=== PATIENT | male | born 1975 ===

== ENCOUNTER 2017-02-05 21:02 | Emergency (ER) | payer SELFPAY ==
[~2017-02-05] VITALS: Ht 182.9 cm; Wt 84.0 kg
[2017-02-05 21:06] VITALS: BP 146/96; TEMP 36.4; Ht 182.9 cm; Wt 84.0 kg
[2017-02-05] MEDS ORDERED: HYDROCODONE/ACETAMOPHEN 5/325MG TAB PO STA (21:25)
[2017-02-05] MEDS ORDERED: NORCO 5/325MG HOME PACK PO ONE (21:30)
--- NOTE | 2017-02-05 21:30 | EMERGENCY ROOM VISIT NOTE ---
ED Visit Note First contact with patient: 21:20 CHIEF COMPLAINT: Left lower tooth pain HISTORY OF PRESENT ILLNESS: This 31-year-old male patient has had a progressive toothache for several days. The pain is now steady and severe and radiates to the face. He has an appointment on Thursday with his dentist. Denies facial swelling or fever. The patient has been trying [id number] treatment without any relief of the pain. REVIEW OF SYSTEMS: 6 system review was performed and was negative unless stated otherwise in history of present illness. PMH: The patient is healthy; asthma, stomach problems SOCIAL HISTORY: Patient lives alone. The patient admits to tobacco use but denies any alcohol use. PHYSICAL EXAM: Vital Signs: Were reviewed Reviewed Nurse's notes. GENERAL: 41- year-old male appears uncomfortable secondary to tooth pain. MENTAL Status: Alert and oriented 3. MOUTH: Diffuse dental decay is noted. Left lower tooth with a portion of it missing with diffuse decay. Gingiva surrounding it without erythema or edema. No palpable abscess noted. FACE: No facial swelling noted. NECK: No cervical or submandibular lymphadenopathy. EMERGENCY COURSE: The patient was evaluated. The patient was given Kerrick 5/325 mg 2 tablets by mouth for pain while in the emergency room. He was also given a Kerrick home pack. The patient was given dental wax. The patient was discharged home in stable condition with a friend driving. DIAGNOSIS: Dental caries and dentalgia DISCHARGE INSTRUCTIONS & TREATMENT: Take Kerrick as needed for pain. Do not drive while taking the Kerrick. Use dental wax as directed. Take amoxicillin as prescribed. Keep scheduled appointment with your dentist on Thursday for definitive care. Current/Historical Medications No Active Prescriptions or Reported Meds Allergies Coded Allergies: No Known Allergies (Unverified , 02/05/17) Vital Signs Date Time Temp Pulse Resp B/P (MAP) Pulse Ox O2 Delivery O2 Flow Rate FiO2 02/05/17 21:06 36.4 62 18 146/96 98 Room Air Departure Information Prescriptions No Active Prescriptions or Reported Meds Referrals No Doctor, Assigned (PCP) Patient Instructions [facility]
[2017-02-05] MEDS ORDERED: AMOX500C3 PO (21:31)
[2017-02-05] MEDS ORDERED: HYDR-5688 PO (21:31)
[2017-02-05 21:39] VITALS: PULSE 60; O2SAT 100
== END 2017-02-05 21:40 | disposition home or self-care (01) ==
LOC: C.EDB 21:04 → C.EDD 21:40
DX: K02.9 Dental caries, unspecified (principal); K08.89 Other specified disorders of teeth and supporting structures; F17.200 Nicotine dependence, unspecified, uncomplicated